=== PATIENT | female | born 1960 | race Two or more races ===

== ENCOUNTER 2017-08-16 08:56 | Inpatient (IN) | payer MEDICARE, MEDICAID ==
[~2017-08-16] VITALS: Ht 162.6 cm; Wt 124.7 kg
--- NOTE | 2017-08-16 08:56 | NUR ---
[id number] FROM [facility] FOR CHEST PAIN RADIATING TO RT ARM X 2HRS [id number], NITRO X1 GIVEN BY EMS W/O RELIEF. PLACED ON MONITOR. AWAITING MD ORDER
--- NOTE | 2017-08-16 09:12 | NUR ---
LAC #18 IV ACCESS. BLOOD SAMPLE COLLECTED SENT TO LAB
--- NOTE | 2017-08-16 09:13 | NUR ---
EKG IN PROGRESS
[2017-08-16 09:15] LABS: BASOPHILS # (AUTO) 0.2 /CMM (0.0-0.2); BASOPHILS % (AUTO) 3.5 % (0.0-2.0); EOSINOPHILS % (AUTO) 4.2 % (0.0-6.0); HEMATOCRIT 44 % (33-45); HEMOGLOBIN 14.8 g/dL (11.5-14.8); LYMPHOCYTES # (AUTO) 1.8 /CMM (0.8-4.8); LYMPHOCYTES % (AUTO) 31.1 % (20.0-44.0); MEAN CORPUSCULAR HGB CONC 33 g/dl (31.0-36.0); MEAN CORPUSCULAR VOLUME 89 fL (82-100); MONOCYTES # (AUTO) 0.4 /CMM (0.1-1.30); MONOCYTES % (AUTO) 6.8 % (2.0-12.0); NEUTROPHILS # (AUTO) 3.3 /CMM (1.8-8.9); NEUTROPHILS % (AUTO) 54.4 % (43.0-81.0); PLATELET COUNT (AUTO) 268 /CMM (150-450); RDW COEFFICIENT OF VARIATION 12.3 (11.5-15.0); RED BLOOD CELL COUNT(AUTO) 4.99 MIL/uL (4.0-5.2); WHITE BLOOD COUNT (AUTO) 5.9 K/uL (4.3-11.0)
[2017-08-16 09:23] LABS: CALCIUM, SERUM 8.7 mg/dL (8.5-10.1); CARBON DIOXIDE 26 mmol/L (21-32); CHLORIDE 103 mmol/L (98-107); GLUCOSE 105 mg/dL (74-106); POTASSIUM 4.3 mmol/L (3.5-5.1); SODIUM SERUM 136 mmol/L (136-145); UREA NITROGEN, BLOOD 16 mg/dL (7-18)
[2017-08-16 09:31] LABS: TROPONIN I < 0.017 ng/mL (0.00-0.056)
--- NOTE | 2017-08-16 10:14 | NUR ---
PAGED [facility] -- COMPOSITE ENGINEER IS DR PALENCIA
[2017-08-16] MEDS ORDERED: OMEP20TA5 PO (10:42)
[2017-08-16] MEDS ORDERED: TEMA15CA PO (10:42)
[2017-08-16] MEDS ORDERED: LORA1TAB PO (10:42)
[2017-08-16] MEDS ORDERED: CYCL5TAB PO (10:42)
[2017-08-16] MEDS ORDERED: ACET-868 PO (10:42)
[2017-08-16] MEDS ORDERED: ESCI10TA PO (10:42)
[2017-08-16] MEDS ORDERED: ARIP5TAB20 PO (10:42)
[2017-08-16] MEDS ORDERED: TRAM50TA2 PO (10:42)
--- NOTE | 2017-08-16 11:06 | NUR ---
TELE 328.1
--- NOTE | 2017-08-16 11:23 | NUR ---
GAVE REPORT TO MARKUS 328-1 DR PALENCIA ADMITTING . CP. TRANSFER VIA ACLS PROTOCOL
[2017-08-16] MEDS ORDERED: MORPHINE SULFATE INJ 2 MG/ML DISP.SYRIN IV PRN (11:30)
[2017-08-16] MEDS ORDERED: ZOLPIDEM TARTRATE 5 MG TABLET PO PRN (11:30)
[2017-08-16] MEDS ORDERED: NITROGLYCERIN 0.4 MG/TAB BOTTLE SL PRN (11:30)
[2017-08-16] MEDS ORDERED: ONDANSETRON HCL/PF 4 MG/2 ML VIAL IVP PRN (11:30)
[2017-08-16 12:05] VITALS: BP 111/81
--- NOTE | 2017-08-16 12:05 | NUR ---
PT RECEIVED FROM ER. NO SOB OR DISTRESS NOTED AT THIS TIME. PATIENT DENIES PAIN AT THIS TIME. PATIENT ORIENTED TO ROOM AND CALL LIGHT. TELE MONITOR APPLIED. BED IN A LOW POSITION, CALL LIGHT WITHIN REACH, WILL MONITOR.
[2017-08-16] MEDS: CYCLOBENZAPRINE 10 MG TABLET PO SCH ×2 (12:33→17:08)
[2017-08-16] MEDS: ASPIRIN 81 MG TAB.CHEW PO SCH ×2 (12:33→12:35)
[2017-08-16] MEDS: METOPROLOL TARTRATE 25 MG TABLET PO SCH ×2 (12:33→17:08)
[2017-08-16 15:47] LABS: MAGNESIUM 2.4 mg/dL (1.8-2.4); PHOSPHORUS 3.7 mg/dL (2.5-4.9)
[2017-08-16 16:50] LABS: THYROID STIMULATING HORMONE 1.185 uIU/mL (0.358-3.74)
--- NOTE | 2017-08-16 17:07 | NUR ---
PT REFUSING SECOND DOSE MORPHINE. STATES FIRST DOSE TOOK AWAY HER PAIN.
--- NOTE | 2017-08-16 19:40 | NUR ---
BRAND STRATEGIST NOTE: PATIENT RESTING IN BED, NO ACUTE DISTRESS NOTED. BREATHING EVEN AND UNLABORED, NO SOB NOTED. IV TO LAC IN PLACE. TELE READING SR 72. BED LOCKED AND IN LOWEST POSITION, CALL LIGHT IN REACH. WILL CONTINUE TO MONITOR.
[2017-08-16 20:00] VITALS: BP 114/69
[2017-08-16] MEDS: TRAMADOL HCL 50 MG TABLET PO SCH (21:29)
--- NOTE | 2017-08-16 21:45 | NUR ---
DONKEY DOCTOR NOTE: PATIENT COMPLAINS OF PAIN TO LEFT ARM/LEG 8/, ULTRAM 50MG ORAL GIVEN PER MD ORDER. WILL CONTINUE TO MONITOR.
[2017-08-17] VITALS: BP 125/71
[2017-08-17 04:00] VITALS: BP 134/75
--- NOTE | 2017-08-17 06:20 | NUR ---
NET DEVELOPER NOTE: PATIENT RESTING IN BED, NO ACUTE DISTRESS NOTED. BREATHING EVEN AND UNLABORED, NO SOB NOTED. IV TO LAC IN PLACE. TELE READING SR 64. BED LOCKED AND IN LOWEST POSITION, CALL LIGHT IN REACH. WILL ENDORSE TO DAY NURSE TO CONTINUE WITH PLAN OF CARE.
--- NOTE | 2017-08-17 07:22 | NUR ---
RN OPENING NOTES PATIENT RESTING IN BED, NO ACUTE DISTRESS NOTED. RESPIRATIONS EVEN AND UNLABORED, NO SOB NOTED. IV TO LAC IN PLACE, NO REDNESS OR INFILTRATION NOTED. PT ON TELEMETRY MONITORING NOTED WITH NORMAL SINUS RHYTHM. BED LOCKED AND IN LOWEST POSITION, CALL LIGHT IN REACH. WILL CONTINUE TO MONITOR.
[2017-08-17] MEDS ORDERED: PANTOPRAZOLE 40 MG TABLET.DR PO SCH (07:30)
[2017-08-17 08:00] VITALS: BP 100/70
--- NOTE | 2017-08-17 08:18 | NUR ---
RN NOTES PATIENT NPO AT THIS TIME FOR STRESS TEST, PT TAKEN DOWN FOR STRESS TEST WILL CONTINUE TO MONITOR AND ADMINISTER MEDICATION UPON RETURN TO UNIT
[2017-08-17] MEDS ORDERED: REGADENOSON 0.4 MG/5 ML DISP.SYRIN IVP ONE (08:20)
[2017-08-17] MEDS ORDERED: ESCITALOPRAM OXALATE (10 MG) 10 MG TABLET PO SCH (09:00)
[2017-08-17] MEDS: METOPROLOL TARTRATE 25 MG TABLET PO SCH (09:00)
[2017-08-17] MEDS ORDERED: ERGOCALCIFEROL (VITAMIN D 2) 50,000 UNIT CAPSULE PO SCH (09:00)
[2017-08-17] MEDS ORDERED: ARIPIPRAZOLE 5 MG TABLET PO SCH (09:00)
--- NOTE | 2017-08-17 09:15 | NUR ---
RN NOTES PATIENT BACK FROM PROCEDURE, BREAKFAST TRAY ORDERED, MEDS TO BE ADMINISTERED ORDERED, WILL CONTINUE TO MONITOR
[2017-08-17] MEDS: CYCLOBENZAPRINE 10 MG TABLET PO SCH ×2 (09:36→12:06)
[2017-08-17] MEDS: TRAMADOL HCL 50 MG TABLET PO SCH (11:48)
[2017-08-17 12:28] LABS: BASOPHILS % (AUTO) 0.2 % (0.0-2.0); EOSINOPHILS % (AUTO) 2.8 % (0.0-6.0); HEMATOCRIT 41 % (33-45); HEMOGLOBIN 13.9 g/dL (11.5-14.8); LYMPHOCYTES # (AUTO) 2.2 /CMM (0.8-4.8); LYMPHOCYTES % (AUTO) 38.8 % (20.0-44.0); MEAN CORPUSCULAR HGB CONC 34 g/dl (31.0-36.0); MEAN CORPUSCULAR VOLUME 89 fL (82-100); MONOCYTES % (AUTO) 0.1 % (2.0-12.0); NEUTROPHILS # (AUTO) 3.3 /CMM (1.8-8.9); NEUTROPHILS % (AUTO) 58.1 % (43.0-81.0); PLATELET COUNT (AUTO) 232 /CMM (150-450); RED BLOOD CELL COUNT(AUTO) 4.61 MIL/uL (4.0-5.2); WHITE BLOOD COUNT (AUTO) 5.7 K/uL (4.3-11.0)
[2017-08-17 12:42] LABS: CALCIUM, SERUM 9.2 mg/dL (8.5-10.1); CREATININE 0.8 mg/dL (0.6-1.3); MAGNESIUM 2.2 mg/dL (1.8-2.4); PHOSPHORUS 3.7 mg/dL (2.5-4.9)
--- NOTE | 2017-08-17 13:30 | NUR ---
IMPRESS ASSOCIATE NOTES PATIENT RESTING IN BED, NO ACUTE DISTRESS NOTED, DENIES ANY PAIN OR DISCOMFORT AT THIS TIME. RESPIRATIONS EVEN AND UNLABORED, NO SOB NOTED. IV TO LAC AND ID BAND REMOVED WITH NO ASE NOTED.PATIENT WITH DISCHARGE ORDERS, ALL DISCHARGE ORDERS INSTRUCTIONS REVIEWED WITH PATIENT THOROUGHLY, F/U APPT WITH CARDIO SCHEDULED AND PATIENT GIVEN INFORMATION, NO PICTURES OF SKIN NEEDED. PATIENT VERBALIZES UNDERSTANDING OF ALL DISCHARGE INSTRUCTIONS. PER PATIENT WILL TAKE BUS HOME, ASSISTED TO LOBBY BY ASSOCIATE SCIENTIST DISCHARGED IN STABLE CONDITION
[2017-08-17 16:00] VITALS: BP 133/90
== END 2017-08-17 13:25 | disposition home or self-care (01) | DRG 205 ==
LOC: ER 08:58 → EDBD 11:21 → TELE 11:21 → MED 08-17 09:14
PROVIDERS: ADMIT Internal Medicine; ATTEND Internal Medicine
DX: M94.0 Chondrocostal junction syndrome [Tietze] (principal); E43 Unspecified severe protein-calorie malnutrition; Z68.42 Body mass index [BMI] 45.0-49.9, adult; E66.01 Morbid (severe) obesity due to excess calories; F41.9 Anxiety disorder, unspecified; I10 Essential (primary) hypertension; K21.9 Gastro-esophageal reflux disease without esophagitis; G47.33 Obstructive sleep apnea (adult) (pediatric); Z90.49 Acquired absence of other specified parts of digestive tract
CPT/HCPCS: 36415; 71045-TC; 80048-TC; 80061-TC; 82306; 83735-TC; 84100-TC; 84439-TC; 84443-TC; 84484-TC; 85025-TC; 87081-TC; 93307-TC; A4606; A9502; J2270; J2405; J2785; Z7610

== ENCOUNTER 2017-08-31 12:30 | Outpatient (CLI) | payer MEDICARE, MEDICAID ==
[~2017-08-31 12:30] MED LIST: ACET-868 PO; ARIP5TAB20 PO; CYCL5TAB PO; ESCI10TA PO; LORA1TAB PO; OMEP20TA5 PO; TEMA15CA PO; TRAM50TA2 PO
[2017-08-31 12:47] VITALS: BP 158/86
[2017-08-31] MEDS ORDERED: AMLO5TAB4 PO (12:47)
== END 2017-08-31 23:59 | disposition home or self-care (01) ==
LOC: MSC 12:30
PROVIDERS: ATTEND Internal Medicine
DX: M94.0 Chondrocostal junction syndrome [Tietze] (principal); I10 Essential (primary) hypertension; E66.01 Morbid (severe) obesity due to excess calories; Z68.41 Body mass index [BMI] 40.0-44.9, adult; F41.9 Anxiety disorder, unspecified; K21.9 Gastro-esophageal reflux disease without esophagitis; M19.90 Unspecified osteoarthritis, unspecified site; R49.0 Dysphonia

== ENCOUNTER 2017-09-28 12:57 | Outpatient (CLI) | payer MEDICARE, MEDICAID ==
[~2017-09-28 12:57] MED LIST changes: +AMLO5TAB4 PO
[2017-09-28 13:21] VITALS: BP 160/92
== END 2017-09-28 23:59 | disposition home or self-care (01) ==
LOC: MSC 12:57
PROVIDERS: ATTEND Internal Medicine
DX: I10 Essential (primary) hypertension (principal); M94.0 Chondrocostal junction syndrome [Tietze]; G62.9 Polyneuropathy, unspecified; G89.29 Other chronic pain; E66.01 Morbid (severe) obesity due to excess calories; Z68.41 Body mass index [BMI] 40.0-44.9, adult; K21.9 Gastro-esophageal reflux disease without esophagitis; F41.9 Anxiety disorder, unspecified; M19.90 Unspecified osteoarthritis, unspecified site; R49.0 Dysphonia; Z79.891 Long term (current) use of opiate analgesic; Z79.899 Other long term (current) drug therapy

== ENCOUNTER 2017-12-14 13:07 | Outpatient (CLI) | payer MEDICARE, MEDICAID ==
[2017-12-14 13:44] VITALS: BP 158/77
== END 2017-12-14 23:59 | disposition home or self-care (01) ==
LOC: MSC 13:07
PROVIDERS: ATTEND Internal Medicine
DX: Z51.89 Encounter for other specified aftercare (principal); I10 Essential (primary) hypertension; G89.29 Other chronic pain; M94.0 Chondrocostal junction syndrome [Tietze]; E66.01 Morbid (severe) obesity due to excess calories; Z68.41 Body mass index [BMI] 40.0-44.9, adult; G62.9 Polyneuropathy, unspecified; K21.9 Gastro-esophageal reflux disease without esophagitis; F41.9 Anxiety disorder, unspecified; M19.90 Unspecified osteoarthritis, unspecified site

== ENCOUNTER 2018-04-05 12:48 | Outpatient (CLI) | payer MEDICARE, MEDICAID | END 2018-04-05 23:59 | disposition home or self-care (01) | LOC: MSC 12:48 | PROVIDERS: ATTEND Nurse Practitioner Acute Care | DX: I10 Essential (primary) hypertension (principal); G62.9 Polyneuropathy, unspecified; G89.29 Other chronic pain; K21.9 Gastro-esophageal reflux disease without esophagitis; F41.9 Anxiety disorder, unspecified; M19.90 Unspecified osteoarthritis, unspecified site; E55.9 Vitamin D deficiency, unspecified; E66.01 Morbid (severe) obesity due to excess calories; Z71.3 Dietary counseling and surveillance; Z90.49 Acquired absence of other specified parts of digestive tract ==

== ENCOUNTER 2018-06-17 11:56 | Emergency (ER) | payer MEDICARE, MEDICAID ==
[~2018-06-17] VITALS: Ht 162.6 cm; Wt 144.2 kg
--- NOTE | 2018-06-17 11:56 | NUR ---
PT BIB SELF C/O HEADACHE, BLURRING OF VISION WORST SINCE LAST NIGHT UNRELIEVED W/ TYLENOL. PT IS AAOX4, NOT IN RESPIRATORY DISTRESS, V/S STABLE, KEPT RESTED AND COMFORTABLE.
--- NOTE | 2018-06-17 12:12 | NUR ---
ADINA AT BEDSIDE FOR EVAL.
[2018-06-17] MEDS ORDERED: KETOROLAC TROMETHAMINE INJ 30 MG/ML VIAL ONE (12:27)
[2018-06-17] MEDS ORDERED: PROCHLORPERAZINE EDISYLATE 10 MG/2 ML VIAL ONE (12:27)
[2018-06-17] MEDS ORDERED: ONDANSETRON HCL/PF 4 MG/2 ML VIAL ONE (12:28)
[2018-06-17] MEDS ORDERED: KETOROLAC TROMETHAMINE INJ 30 MG/ML VIAL IV ONE (12:30)
[2018-06-17] MEDS ORDERED: IV NS 0.9% 1,000 ML BAG IV ONE (12:30)
[2018-06-17] MEDS ORDERED: ONDANSETRON HCL/PF 4 MG/2 ML VIAL IVP ONE (12:30)
[2018-06-17] MEDS ORDERED: PROCHLORPERAZINE EDISYLATE 10 MG/2 ML VIAL IV ONE (12:30)
--- NOTE | 2018-06-17 12:45 | NUR ---
IV LINE ESTABLISHED.
--- NOTE | 2018-06-17 12:50 | NUR ---
PT IS WHEELED TO CT SCAN VIA [facility].
--- NOTE | 2018-06-17 14:14 | NUR ---
IV removed. Catheter intact and site benign. Pressure and 4x4 applied to site. No bleeding noted. Patient discharged to home in stable condition. Written and verbal after care instructions given. Patient verbalizes understanding of instruction.
[2018-06-17 14:15] VITALS: BP 130/72
== END 2018-06-17 14:17 | disposition home or self-care (01) ==
LOC: ER 12:02
DX: G43.909 Migraine, unspecified, not intractable, without status migrainosus (principal); K21.9 Gastro-esophageal reflux disease without esophagitis; I10 Essential (primary) hypertension; F41.9 Anxiety disorder, unspecified; E66.01 Morbid (severe) obesity due to excess calories; Z90.49 Acquired absence of other specified parts of digestive tract
CPT/HCPCS: 70450; 96374; 96375; 99284; A4606; J0780; J1885; J2405; J7030

== ENCOUNTER 2018-06-17 16:24 | Emergency (ER) | payer MEDICARE, MEDICAID ==
[~2018-06-17] VITALS: Ht 162.6 cm; Wt 136.1 kg
[2018-06-17 16:35] VITALS: BP 148/80
--- NOTE | 2018-06-17 16:35 | NUR ---
PT [facility] TO ER, C/O HEADACHE AND BILATERAL EYE PAIN; 01/05, PT IS AAOX4, NOT IN RESPIRATORY DISTRESS, V/S STABLE, KEPT RESTED AND COMFORTABLE.
--- NOTE | 2018-06-17 17:00 | NUR ---
SEEN AND EXAMINED BY DR. ESPINAL.
[2018-06-17] MEDS ORDERED: IBUPROFEN 600 MG TABLET PO ONE ×2 (17:06→17:30)
[2018-06-17] MEDS ORDERED: HYDROCODONE/APAP 10/325MG 1 EA TABLET ONE (17:06)
--- NOTE | 2018-06-17 17:08 | NUR ---
LEFT A MESSAGE FOR KAYLA. WILL CALL HER BACK
--- NOTE | 2018-06-17 17:29 | NUR ---
CALLED CASE MANAGEMENT AND WAS INFORMED THAT KAYLA HAD ALREADY GONE HOME FOR THE DAY. ASKED CM TO COME AND SPEAK TO THE PT. THEY WILL ARRIVE SHORTLY
[2018-06-17] MEDS ORDERED: HYDROCODONE/APAP 10/325MG 1 EA TABLET PO ONE (17:30)
--- NOTE | 2018-06-17 17:51 | NUR ---
Patient given written and verbal discharge instructions. Patient verbalizes understanding of instructions. Patient is ambulatory with steady gait. Refuses offer of longterm placement. Patient given list of available shelters in surrounding area.
== END 2018-06-17 17:56 | disposition home or self-care (01) ==
LOC: ER 16:26
DX: R51 Headache (principal); I10 Essential (primary) hypertension; K21.9 Gastro-esophageal reflux disease without esophagitis; F41.9 Anxiety disorder, unspecified; E66.01 Morbid (severe) obesity due to excess calories; Z90.49 Acquired absence of other specified parts of digestive tract
CPT/HCPCS: 99283; A4606

== ENCOUNTER 2018-07-05 12:40 | Outpatient (CLI) | payer MEDICARE, MEDICAID | END 2018-07-05 23:59 | disposition home or self-care (01) | LOC: MSC 12:40 | PROVIDERS: ATTEND Nurse Practitioner Acute Care | DX: M19.90 Unspecified osteoarthritis, unspecified site (principal); G89.29 Other chronic pain; G62.9 Polyneuropathy, unspecified; I10 Essential (primary) hypertension; K21.9 Gastro-esophageal reflux disease without esophagitis; F41.9 Anxiety disorder, unspecified; E55.9 Vitamin D deficiency, unspecified; E66.9 Obesity, unspecified ==

== ENCOUNTER 2018-10-04 12:24 | Outpatient (CLI) | payer MEDICARE, MEDICAID ==
[2018-10-04 13:00] VITALS: BP 148/75
== END 2018-10-04 23:59 | disposition home or self-care (01) ==
LOC: MSC 12:24
PROVIDERS: ATTEND Internal Medicine
DX: I10 Essential (primary) hypertension (principal); G89.29 Other chronic pain; G62.9 Polyneuropathy, unspecified; E66.01 Morbid (severe) obesity due to excess calories; Z68.41 Body mass index [BMI] 40.0-44.9, adult; K21.9 Gastro-esophageal reflux disease without esophagitis; F41.8 Other specified anxiety disorders; Z87.19 Personal history of other diseases of the digestive system; M19.90 Unspecified osteoarthritis, unspecified site; R49.0 Dysphonia; R45.851 Suicidal ideations

== ENCOUNTER 2019-01-03 13:14 | Outpatient (CLI) | payer MEDICARE, MEDICAID ==
[2019-01-03] MEDS ORDERED: GABA-534 PO (14:50)
[2019-01-06] MEDS ORDERED: TOPI25TA PO (08:59)
[2019-01-06] MEDS ORDERED: LISI10TA59 PO (08:59)
== END 2019-01-03 23:59 | disposition home or self-care (01) ==
LOC: MSC 13:14
PROVIDERS: ATTEND Internal Medicine
DX: R51 Headache (principal); R29.810 Facial weakness; I10 Essential (primary) hypertension; E66.9 Obesity, unspecified; G62.9 Polyneuropathy, unspecified; G89.29 Other chronic pain; M54.5 Low back pain; F41.9 Anxiety disorder, unspecified; F32.9 Major depressive disorder, single episode, unspecified

== ENCOUNTER 2019-01-03 14:04 | Inpatient (IN) | payer MEDICARE, MEDICAID ==
[~2019-01-03] VITALS: Ht 162.6 cm; Wt 1.6 kg
[2019-01-03] MEDS ORDERED: GABA-534 PO (14:50)
--- NOTE | 2019-01-03 14:56 | NUR ---
Patient awake alert non distress ,monitor ,gown ,vitals sign lab drws done
[2019-01-03 15:15] LABS: BASOPHILS # (AUTO) 0.1 /CMM (0.0-0.2); BASOPHILS % (AUTO) 1.1 % (0.0-2.0); EOSINOPHILS % (AUTO) 2.9 % (0.0-6.0); HEMATOCRIT 39 % (33-45); HEMOGLOBIN 13.1 g/dL (11.5-14.8); LYMPHOCYTES % (AUTO) 29.4 % (20.0-44.0); MEAN CORPUSCULAR HGB CONC 34 g/dl (31.0-36.0); MEAN CORPUSCULAR VOLUME 91 fL (82-100); MONOCYTES # (AUTO) 0.6 /CMM (0.1-1.30); MONOCYTES % (AUTO) 9.6 % (2.0-12.0); NEUTROPHILS # (AUTO) 3.8 /CMM (1.8-8.9); PLATELET COUNT (AUTO) 228 /CMM (150-450); RED BLOOD CELL COUNT(AUTO) 4.29 MIL/uL (4.0-5.2); WHITE BLOOD COUNT (AUTO) 6.6 K/uL (4.3-11.0)
[2019-01-03 15:22] LABS: CALCIUM, SERUM 8.5 mg/dL (8.5-10.1)
[2019-01-03 15:27] LABS: ALBUMIN 3.4 g/dL (3.4-5.0); BILIRUBIN,DIRECT 0.1 mg/dL (0.0-0.2); BILIRUBIN,TOTAL 0.2 mg/dL (0.2-1.0); TOTAL PROTEIN, SERUM 7.1 g/dL (6.4-8.2)
--- NOTE | 2019-01-03 15:55 | NUR ---
CALLED [facility] LELIA LOONEY.
[2019-01-03] MEDS ORDERED: ZOLPIDEM TARTRATE 5 MG TABLET PO PRN (16:30)
[2019-01-03] MEDS ORDERED: ACETAMINOPHEN 325 MG TABLET PO PRN (16:30)
[2019-01-03] MEDS ORDERED: MAGNESIUM HYDROXIDE 30 ML UDC PO PRN (16:30)
[2019-01-03] MEDS ORDERED: Z GUARD REMEDY 2 OZ OINT TP PRN (16:30)
[2019-01-03] MEDS ORDERED: TRAMADOL HCL 50 MG TABLET PO SCH (16:30)
[2019-01-03] MEDS ORDERED: MAG HYDROX/AL HYDROX/SIMETH 30 ML UDC PO PRN (16:30)
[2019-01-03] MEDS ORDERED: ONDANSETRON HCL/PF 4 MG/2 ML VIAL IVP PRN (16:30)
--- NOTE | 2019-01-03 16:45 | NUR ---
REPORT GIVEN TO JUAN CARLOS MCKENZIE. AWAITING TRANSFER TO FLOOR.
[2019-01-03 17:05] VITALS: BP 128/76
[2019-01-03] MEDS: CYCLOBENZAPRINE 10 MG TABLET PO SCH (17:21)
--- NOTE | 2019-01-03 18:16 | NUR ---
TELE ADMITTING NOTES PT ADMITTED TO UNIT VIA [facility] AT 1700 ACCOMPANIED BY VOCATIONAL TRAINING INSTRUCTOR QUINN. PT ABLE TO AMBULATE FROM [facility] TO BED WITH STEADY GAIT. A/O X4. ABLE TO MAKE NEEDS KNOWN, VERBALIZED THAT SHE STILL EXPERIENCE MILD TINGLING TO RIGHT ARM ON AND OFF AND MILD HEADACHE BUT TOLERABLE. PT ORIENTED TO UNIT, STAFF AND ROOM. V/S TAKEN AND RECORDED. PT NOTED WITH IV ACCESS ON RIGHT FA G #20 INTACT, PATENT AND FLUSHES WELL. PT WITH NO SLURRED SPEECH, NO DRIFT ON BLE AND BUE, NO FACIAL DROOP NOTED. DR MADDOX MADE AWARE AND CAME WELL TO ASSESS AND EVALUATE PT. PT PLACED ON TELE-MONITORING SHOWING ST/SR WITH HR ON THE 90'S, NO C/O CARDIAC DISTRESS VOICED. SAFETY MEASURES INITIATED: BED PLACED IN LOW LOCKED POSITION WITH SIDE-RAILS UP X2. CALL LIGHT PLACED WITH IN EASY REACH OF PT. WILL CONTINUE TO MONITOR PT.
--- NOTE | 2019-01-03 18:53 | NUR ---
DRILL PRESS TENDER CLOSING NOTES PT IN BED AWAKE WATCHING TV AT THIS TIME. A/O X4 AND ABLE TO VERBALIZED NEEDS, NO C/O PAIN OR DISCOMFORTS AT THIS TIME. TELEMONITORING REMAINS WITH READINGS OF ST/SR WITH HR ON THE 90'S, NO C/O CARDIAC DISTRESS VOICED. IV ACCESS ON RFA INTACT AND PATENT. ALL NEEDS AND CARE ATTENDED WELL. ALL SAFETY MEASURES KEPT IN PLACE. CALL LIGHT WITHIN EASY REACH OF PT. WILL ENDORSE TO GAMING DEPARTMENT HEAD NURSE FOR NURYS.
--- NOTE | 2019-01-03 19:10 | NUR ---
INSPECTOR MECHANICAL OPENING NOTES PATIENT RECEIVED IN BED, AWAKE, WATCHING TV. A/O X4 AND ABLE TO VERBALIZED NEEDS. NO C/O PAIN OR DISCOMFORT AT THIS TIME. TELEMONITOR IN PLACE- SINUS TACH 103. IV ACCESS ON RFA G#20 INTACT AND PATENT. SAFETY MEASURES IN PLACE; CALL LIGHT WITHIN EASY REACH, BED IN LOW, LOCKED POSITION. WILL CONTINUE TO MONITOR ACCORDINGLY
--- NOTE | 2019-01-03 19:53 | NUR ---
RN NOTES Patient c/o sharp pain on top of head and on side 9/10, requested for ultram. Ultram 50mg po given as ordered. Will continue to monitor
[2019-01-03 19:57] VITALS: BP 143/78
[2019-01-03 20:00] VITALS: BP 143/78
[2019-01-03] MEDS: HYDROCODONE/APAP 5/325MG 1 EACH TABLET PO PRN (21:58)
[2019-01-04] VITALS: BP 138/85
[2019-01-04 00:17] VITALS: BP 138/85
[2019-01-04] MEDS: HYDROCODONE/APAP 5/325MG 1 EACH TABLET PO PRN ×5 (02:04→23:50)
[2019-01-04 04:02] VITALS: BP 158/89
--- NOTE | 2019-01-04 06:30 | NUR ---
SENIOR SVP CLOSING NOTES PATIENT IN BED, RESTING, A/O X4 AND ABLE TO VERBALIZE NEEDS. NO C/O PAIN OR DISCOMFORTS AT THIS TIME. TELEMONITOR IN PLACE- SINUS RHYTHM 83. IV ACCESS ON RFA INTACT AND PATENT. NO ACUTE CHANGES OVERNIGHT. ALL NEEDS ATTENDED WELL. ALL SAFETY MEASURES KEPT IN PLACE. CALL LIGHT WITHIN EASY REACH, BED IN LOW, LOCKED POSITION. WILL ENDORSE NURYS TO ONCOMING NURSE
--- NOTE | 2019-01-04 07:30 | NUR ---
RN MS NOTES PT AWAKE, ALERT AND ORIENTED, WALKING INSIDE HER ROOM, STILL WITH COMPLAINT OF HEADACHE, NO COMPLAINT OF DIZZINESS, NO SOB, CALL LIGHT WITHIN REACH, NEEDS ATTENDED.
[2019-01-04 07:49] LABS: BASOPHILS # (AUTO) 0.1 /CMM (0.0-0.2); BASOPHILS % (AUTO) 1.1 % (0.0-2.0); EOSINOPHILS % (AUTO) 4.2 % (0.0-6.0); HEMATOCRIT 40 % (33-45); HEMOGLOBIN 13.3 g/dL (11.5-14.8); LYMPHOCYTES # (AUTO) 2.1 /CMM (0.8-4.8); LYMPHOCYTES % (AUTO) 37.8 % (20.0-44.0); MEAN CORPUSCULAR HGB CONC 33 g/dl (31.0-36.0); MEAN CORPUSCULAR VOLUME 91 fL (82-100); MONOCYTES # (AUTO) 0.5 /CMM (0.1-1.30); MONOCYTES % (AUTO) 8.1 % (2.0-12.0); NEUTROPHILS # (AUTO) 2.7 /CMM (1.8-8.9); NEUTROPHILS % (AUTO) 48.8 % (43.0-81.0); PLATELET COUNT (AUTO) 220 /CMM (150-450); RED BLOOD CELL COUNT(AUTO) 4.39 MIL/uL (4.0-5.2); WHITE BLOOD COUNT (AUTO) 5.6 K/uL (4.3-11.0)
[2019-01-04 07:56] LABS: CALCIUM, SERUM 8.8 mg/dL (8.5-10.1); CREATININE 0.9 mg/dL (0.6-1.3); MAGNESIUM 1.9 mg/dL (1.8-2.4); PHOSPHORUS 4.5 mg/dL (2.5-4.9)
[2019-01-04 08:00] VITALS: BP 141/74
[2019-01-04] MEDS: CYCLOBENZAPRINE 10 MG TABLET PO SCH ×3 (08:21→17:46)
[2019-01-04] MEDS: PANTOPRAZOLE 40 MG TABLET.DR PO SCH (08:21)
[2019-01-04] MEDS: GABAPENTIN 300 MG CAPSULE PO SCH (08:21)
[2019-01-04] MEDS: AMLODIPINE BESYLATE 5 MG TABLET PO SCH (08:22)
[2019-01-04] MEDS: TRAMADOL HCL 50 MG TABLET PO PRN ×2 (08:30→17:45)
--- NOTE | 2019-01-04 11:39 | NUR ---
RN MS NOTES PT AWAKE, WALKING INSIDE HER ROOM WITH SLOW AND STEADY GAIT, PAIN MEDICATION GIVEN FOR HEADACHE, SEEN BY DR. MADDOX, PLAN OF CARE DISCUSSED WITH PT, VERBALIZED UNDERSTANDING, NEEDS ATTENDED.
[2019-01-04 16:00] VITALS: BP 160/78
--- NOTE | 2019-01-04 18:42 | NUR ---
RN MS NOTES PT AWAKE, ALERT AND ORIENTED, WALKING AROUND INSIDE HER ROOM, AT TIMES TALKING ON THE PHONE, PAIN MEDS GIVEN ORDERED FOR HEADACHE, NO OTHER COMPLAINT NOTED, TOLERATING CURRENT DIET, PM MEDS GIVEN, ALL NEEDS ATTENDED.
[2019-01-04 20:18] VITALS: BP 150/78
--- NOTE | 2019-01-05 06:21 | NUR ---
MS RN NOTES AWAKE & RESPONSIVE. NOT IN ANY DISTRESS. NO SOB NOTED. DENIES ANY PAIN OR DISCOMFORT AT THIS TIME. CALL LIGHT WITHIN REACH. BED IN LOWEST POSITION. SR UP X 3 WITH BED ALARM ON FOR SAFETY. WILL ENDORSE TO NEXT SHIFT.
[2019-01-05 07:04] LABS: BASOPHILS % (AUTO) 0.8 % (0.0-2.0); EOSINOPHILS % (AUTO) 4.1 % (0.0-6.0); HEMATOCRIT 38 % (33-45); HEMOGLOBIN 12.6 g/dL (11.5-14.8); LYMPHOCYTES # (AUTO) 1.8 /CMM (0.8-4.8); LYMPHOCYTES % (AUTO) 31.6 % (20.0-44.0); MEAN CORPUSCULAR HGB CONC 33 g/dl (31.0-36.0); MEAN CORPUSCULAR VOLUME 90 fL (82-100); MONOCYTES # (AUTO) 0.6 /CMM (0.1-1.30); MONOCYTES % (AUTO) 10.3 % (2.0-12.0); NEUTROPHILS % (AUTO) 53.2 % (43.0-81.0); PLATELET COUNT (AUTO) 212 /CMM (150-450); RED BLOOD CELL COUNT(AUTO) 4.21 MIL/uL (4.0-5.2); WHITE BLOOD COUNT (AUTO) 5.6 K/uL (4.3-11.0)
[2019-01-05 07:16] LABS: CALCIUM, SERUM 8.6 mg/dL (8.5-10.1); CREATININE 0.9 mg/dL (0.6-1.3)
[2019-01-05 08:00] VITALS: BP 140/79
--- NOTE | 2019-01-05 08:00 | NUR ---
MS RN OPENING NOTES PATIENT RECEIVED IN BED, AWAKE, WATCHING TV. A/O X4 AND ABLE TO VERBALIZED NEEDS. WITH C/O HEADACHE PAIN -ULTRAM GIVEN PRN WITH EFFECTIVE RESULT.AMBULATES AD [facility] WITH [facility]. IV H/L GOT ACCIDENTALLY PULLED OUT-DR MADDOX AWARE WITH NO ORDERS TO REPLACE IV H/L.PT DRINKS GOOD AND HAS GOOD APPETITE. PT WILL BE DISCHARGED TOMORROW AM PER DR MADDOX. SAFETY MEASURES IN PLACE; CALL LIGHT WITHIN EASY REACH, BED IN LOW, LOCKED POSITION. WILL CONTINUE TO MONITOR ACCORDINGLY
[2019-01-05] MEDS: TRAMADOL HCL 50 MG TABLET PO PRN (08:06)
[2019-01-05] MEDS: PANTOPRAZOLE 40 MG TABLET.DR PO SCH (08:06)
[2019-01-05] MEDS: GABAPENTIN 300 MG CAPSULE PO SCH (08:07)
[2019-01-05] MEDS: CYCLOBENZAPRINE 10 MG TABLET PO SCH ×3 (08:07→16:56)
[2019-01-05] MEDS: AMLODIPINE BESYLATE 5 MG TABLET PO SCH (08:25)
[2019-01-05] MEDS: LISINOPRIL (10MG) 10 MG TABLET PO SCH (08:29)
[2019-01-05 16:00] VITALS: BP 124/68
[2019-01-05] MEDS: TOPIRAMATE 25 MG TABLET PO SCH ×2 (16:56→22:18)
[2019-01-05] MEDS ORDERED: IOHEXOL-350 100 ML VIAL IV ONE (17:03)
[2019-01-05] MEDS ORDERED: IV NS 0.9% 250 ML IV ONE (17:03)
[2019-01-05] MEDS ORDERED: CT SWABBABLE VALVE TRANS SET 1 EA INFUS.SET MC ONE (17:03)
--- NOTE | 2019-01-05 18:14 | NUR ---
PT RESTING IN BED DENYING ANY PAIN OR DISTRESS.EATING HER DINNER 100%.CALL LIGHT PLACED WITHIN REACH.
[2019-01-05 20:00] VITALS: BP 124/61
[2019-01-06 06:29] LABS: BASOPHILS % (AUTO) 0.6 % (0.0-2.0); EOSINOPHILS % (AUTO) 3.3 % (0.0-6.0); HEMATOCRIT 39 % (33-45); HEMOGLOBIN 12.8 g/dL (11.5-14.8); LYMPHOCYTES # (AUTO) 1.6 /CMM (0.8-4.8); LYMPHOCYTES % (AUTO) 26.8 % (20.0-44.0); MEAN CORPUSCULAR HGB CONC 33 g/dl (31.0-36.0); MEAN CORPUSCULAR VOLUME 91 fL (82-100); MONOCYTES # (AUTO) 0.6 /CMM (0.1-1.30); NEUTROPHILS # (AUTO) 3.6 /CMM (1.8-8.9); NEUTROPHILS % (AUTO) 59.3 % (43.0-81.0); PLATELET COUNT (AUTO) 210 /CMM (150-450); RED BLOOD CELL COUNT(AUTO) 4.28 MIL/uL (4.0-5.2)
--- NOTE | 2019-01-06 06:33 | NUR ---
MS RN NOTES AWAKE & RESPONSIVE. NOT IN ANY DISTRESS. NO SOB NOTED. DENIES ANY PAIN OR DISCOMFORT AT THIS TIME. WITH IV-HL PATENT & INTACT. CALL LIGHT WITHIN REACH. BED IN LOWEST POSITION. SR UP X 3 WITH BED ALARM ON FOR SAFETY. WILL ENDORSE TO NEXT SHIFT.
[2019-01-06 06:48] LABS: POTASSIUM 4.3 mmol/L (3.5-5.1)
[2019-01-06 08:00] VITALS: BP 117/70
--- NOTE | 2019-01-06 08:00 | NUR ---
MS RN AM NOTES AWAKE & RESPONSIVE. DENIES HEADACHE NOR DISTRESS. NO SOB NOTED. DENIES ANY PAIN OR DISCOMFORT AT THIS TIME. WITH IV-HL PATENT & INTACT. CALL LIGHT WITHIN REACH. BED IN LOWEST POSITION. SR UP X 3 WITH BED ALARM ON FOR SAFETY.
[2019-01-06] MEDS: CYCLOBENZAPRINE 10 MG TABLET PO SCH ×2 (08:52→13:10)
[2019-01-06] MEDS: GABAPENTIN 300 MG CAPSULE PO SCH (08:52)
[2019-01-06] MEDS: PANTOPRAZOLE 40 MG TABLET.DR PO SCH (08:52)
[2019-01-06] MEDS: LISINOPRIL (10MG) 10 MG TABLET PO SCH (08:52)
[2019-01-06 08:53] VITALS: BP 117/70
[2019-01-06] MEDS: AMLODIPINE BESYLATE 5 MG TABLET PO SCH (08:53)
[2019-01-06] MEDS: TOPIRAMATE 25 MG TABLET PO SCH (08:53)
[2019-01-06] MEDS ORDERED: TOPI25TA PO (08:59)
[2019-01-06] MEDS ORDERED: LISI10TA59 PO (08:59)
--- NOTE | 2019-01-06 13:00 | NUR ---
DISCHARGE PT HOME WITH STABLE V/S.IV H/L REMOVED TO RT AC WITH NO BLEEDING OR SWELLING NOTED ON THE SITE.DENIES ANY HEADACHE,DISTRESS OR DISCOMFORT.INSTRUCTED TO F/U WITH HER PMD AND NEURO SPECIALIST.PRESCRIPTION HANDED TO THE PT AND WAS ELECTRONICALLY TRANSFERRED BY DR MADDOX TO PT'S HOME PHARMACY,[facility].
== END 2019-01-06 13:00 | disposition home or self-care (01) | DRG 305 ==
LOC: ER 14:05 → TELE 16:44 → MED 01-04 08:57
PROVIDERS: ADMIT Family Medicine; ATTEND Family Medicine
DX: I16.1 Hypertensive emergency (principal); Z68.1 Body mass index [BMI] 19.9 or less, adult; I10 Essential (primary) hypertension; K21.9 Gastro-esophageal reflux disease without esophagitis; M19.90 Unspecified osteoarthritis, unspecified site; G62.9 Polyneuropathy, unspecified; F41.9 Anxiety disorder, unspecified; E66.01 Morbid (severe) obesity due to excess calories; Z79.899 Other long term (current) drug therapy; Z90.49 Acquired absence of other specified parts of digestive tract; D17.9 Benign lipomatous neoplasm, unspecified; G43.909 Migraine, unspecified, not intractable, without status migrainosus
CPT/HCPCS: 36415; 70450-TC; 70496-TC; 71045-TC; 80048-TC; 80061-TC; 80076-TC; 82962-TC; 83735-TC; 84100-TC; 85025-TC; 87081-TC; 93307-TC; 93880-TC; G0378; J7050; Q9967

== ENCOUNTER 2019-02-03 13:11 | Outpatient (CLI) | payer MEDICARE, MEDICAID ==
[~2019-02-03 13:11] MED LIST changes: -ACET-868 PO; -ARIP5TAB20 PO; -ESCI10TA PO; +LISI-605 PO; -LORA1TAB PO; -TEMA15CA PO; +TOPI25TA PO
[2019-02-03 14:24] VITALS: BP 158/82
== END 2019-02-03 23:59 | disposition home or self-care (01) ==
LOC: MSC 13:11
PROVIDERS: ATTEND Internal Medicine
DX: G43.109 Migraine with aura, not intractable, without status migrainosus (principal); I10 Essential (primary) hypertension; E66.01 Morbid (severe) obesity due to excess calories; Z68.41 Body mass index [BMI] 40.0-44.9, adult; G62.9 Polyneuropathy, unspecified; G89.29 Other chronic pain; M54.9 Dorsalgia, unspecified; F41.8 Other specified anxiety disorders; M25.559 Pain in unspecified hip; K21.0 Gastro-esophageal reflux disease with esophagitis; Z79.891 Long term (current) use of opiate analgesic; Z79.899 Other long term (current) drug therapy

== ENCOUNTER 2019-05-02 13:48 | Outpatient (CLI) | payer MEDICARE, MEDICAID ==
[2019-05-02 13:53] VITALS: BP 148/83
== END 2019-05-02 23:55 | disposition home or self-care (01) ==
LOC: MSC 13:48
PROVIDERS: ATTEND Internal Medicine
DX: G43.109 Migraine with aura, not intractable, without status migrainosus (principal); I10 Essential (primary) hypertension; E66.01 Morbid (severe) obesity due to excess calories; Z68.41 Body mass index [BMI] 40.0-44.9, adult; G62.9 Polyneuropathy, unspecified; G89.29 Other chronic pain; M54.9 Dorsalgia, unspecified; K43.9 Ventral hernia without obstruction or gangrene; F41.8 Other specified anxiety disorders; Z79.899 Other long term (current) drug therapy

== ENCOUNTER 2019-06-06 14:45 | Outpatient (CLI) | payer MEDICARE, MEDICAID | END 2019-06-06 23:59 | disposition home or self-care (01) | LOC: MSC 14:45 | PROVIDERS: ATTEND Internal Medicine | DX: G43.109 Migraine with aura, not intractable, without status migrainosus (principal); I10 Essential (primary) hypertension; E66.01 Morbid (severe) obesity due to excess calories; Z68.41 Body mass index [BMI] 40.0-44.9, adult; G62.9 Polyneuropathy, unspecified; G89.29 Other chronic pain; M54.9 Dorsalgia, unspecified; Z86.59 Personal history of other mental and behavioral disorders; Z87.19 Personal history of other diseases of the digestive system; Z79.899 Other long term (current) drug therapy ==

== ENCOUNTER 2019-07-25 09:35 | Outpatient (CLI) | payer MEDICARE, MEDICAID | END 2019-07-25 23:59 | disposition home or self-care (01) | LOC: MSC 09:35 | PROVIDERS: ATTEND Internal Medicine | DX: Z09 Encounter for follow-up examination after completed treatment for conditions other than malignant neoplasm (principal); G43.109 Migraine with aura, not intractable, without status migrainosus; I10 Essential (primary) hypertension; E66.01 Morbid (severe) obesity due to excess calories; Z68.41 Body mass index [BMI] 40.0-44.9, adult; G62.9 Polyneuropathy, unspecified; G89.29 Other chronic pain; M54.9 Dorsalgia, unspecified; K21.9 Gastro-esophageal reflux disease without esophagitis; Z86.59 Personal history of other mental and behavioral disorders; Z79.899 Other long term (current) drug therapy ==

== ENCOUNTER 2019-08-01 11:06 | Outpatient (CLI) | payer MEDICARE, MEDICAID | END 2019-08-01 23:59 | disposition home or self-care (01) | LOC: MSC 11:06 | PROVIDERS: ATTEND Internal Medicine | DX: K43.9 Ventral hernia without obstruction or gangrene (principal); G43.109 Migraine with aura, not intractable, without status migrainosus; I10 Essential (primary) hypertension; E66.01 Morbid (severe) obesity due to excess calories; Z68.41 Body mass index [BMI] 40.0-44.9, adult; G62.9 Polyneuropathy, unspecified; G89.29 Other chronic pain; M54.9 Dorsalgia, unspecified; Z86.59 Personal history of other mental and behavioral disorders; Z79.899 Other long term (current) drug therapy; Z79.1 Long term (current) use of non-steroidal anti-inflammatories (NSAID) ==

== ENCOUNTER 2019-10-03 15:06 | Outpatient (CLI) | payer MEDICARE, MEDICAID ==
[2019-10-11] MEDS ORDERED: METO50TA16 PO (13:19)
[2019-10-11] MEDS ORDERED: ATOR10TA PO (13:19)
== END 2019-10-03 23:59 | disposition home or self-care (01) ==
LOC: MSC 15:06
PROVIDERS: ATTEND Internal Medicine
DX: R50.9 Fever, unspecified (principal); G43.109 Migraine with aura, not intractable, without status migrainosus; I10 Essential (primary) hypertension; E66.01 Morbid (severe) obesity due to excess calories; Z68.41 Body mass index [BMI] 40.0-44.9, adult; G62.9 Polyneuropathy, unspecified; G89.29 Other chronic pain; M54.9 Dorsalgia, unspecified; K43.9 Ventral hernia without obstruction or gangrene; F41.8 Other specified anxiety disorders; Z79.899 Other long term (current) drug therapy

== ENCOUNTER 2019-10-10 12:39 | Outpatient (CLI) | payer MEDICARE, MEDICAID ==
[2019-10-10] MEDS ORDERED: LISI40TA4 MT (14:52)
[2019-10-10] MEDS ORDERED: TOPI50TA24 MT (14:52)
[2019-10-10] MEDS ORDERED: OMEP20CA15 MT (14:52)
[2019-10-10] MEDS ORDERED: AMLO10TA7 MT (14:52)
[2019-10-11] MEDS ORDERED: METO50TA16 PO (13:19)
[2019-10-11] MEDS ORDERED: ATOR10TA PO (13:19)
== END 2019-10-10 23:59 | disposition home or self-care (01) ==
LOC: MSC 12:39
PROVIDERS: ATTEND Internal Medicine
DX: R07.9 Chest pain, unspecified (principal); R06.09 Other forms of dyspnea; I99.8 Other disorder of circulatory system; I16.0 Hypertensive urgency; E66.01 Morbid (severe) obesity due to excess calories; Z68.41 Body mass index [BMI] 40.0-44.9, adult; G43.109 Migraine with aura, not intractable, without status migrainosus; G62.9 Polyneuropathy, unspecified; G89.29 Other chronic pain; M54.9 Dorsalgia, unspecified; Z87.19 Personal history of other diseases of the digestive system; Z86.59 Personal history of other mental and behavioral disorders; Z79.899 Other long term (current) drug therapy

== ENCOUNTER 2019-10-10 13:27 | Inpatient (IN) | payer MEDICARE, OTHER ==
[~2019-10-10] VITALS: Ht 162.6 cm; Wt 141.1 kg
[2019-10-10 13:50] LABS: BASOPHILS # (AUTO) 0.1 /CMM (0.0-0.2); BASOPHILS % (AUTO) 0.8 % (0.0-2.0); HEMATOCRIT 38 % (33-45); HEMOGLOBIN 12.5 g/dL (11.5-14.8); LYMPHOCYTES % (AUTO) 31.4 % (20.0-44.0); MEAN CORPUSCULAR HGB CONC 33 g/dl (31.0-36.0); MEAN CORPUSCULAR VOLUME 93 fL (82-100); MONOCYTES # (AUTO) 0.5 /CMM (0.1-1.30); MONOCYTES % (AUTO) 7.2 % (2.0-12.0); NEUTROPHILS # (AUTO) 3.7 /CMM (1.8-8.9); NEUTROPHILS % (AUTO) 57.6 % (43.0-81.0); PLATELET COUNT (AUTO) 217 /CMM (150-450); RED BLOOD CELL COUNT(AUTO) 4.11 MIL/uL (4.0-5.2); WHITE BLOOD COUNT (AUTO) 6.5 K/uL (4.3-11.0)
--- NOTE | 2019-10-10 13:50 | NUR ---
CHEST PAIN, SOB ON EXERTION X 2 WEEKS SENT BY MD HERNANDEZ FOR EVAL. PT AAOX4, PLACED ON GOODYEAR STITCHER, ST. PT SEEN & EVAL'D BY DR. MENDIOLA. WILL CONT TO MONITOR.
[2019-10-10] MEDS ORDERED: ASPIRIN 81 MG TAB.CHEW ONE (13:55)
[2019-10-10 13:58] LABS: CALCIUM, SERUM 8.5 mg/dL (8.5-10.1); CARBON DIOXIDE 20 mmol/L (21-32); CHLORIDE 109 mmol/L (98-107); GLUCOSE 131 mg/dL (74-106); SODIUM SERUM 141 mmol/L (136-145); UREA NITROGEN, BLOOD 23 mg/dL (7-18)
[2019-10-10] MEDS ORDERED: ASPIRIN 81 MG TAB.CHEW PO ONE (14:00)
[2019-10-10] MEDS ORDERED: OMEP20CA15 MT (14:52)
[2019-10-10] MEDS ORDERED: TOPI50TA24 MT (14:52)
[2019-10-10] MEDS ORDERED: AMLO10TA7 MT (14:52)
[2019-10-10] MEDS ORDERED: LISI40TA4 MT (14:52)
[2019-10-10] MEDS ORDERED: ASPIRIN 325 MG TABLET PO ONE (15:00)
[2019-10-10] MEDS ORDERED: NITROGLYCERIN PACKET 1 GM PACKET TOP ONE (15:00)
[2019-10-10] MEDS ORDERED: NITROGLYCERIN PACKET 1 GM PACKET ONE (15:14)
--- NOTE | 2019-10-10 15:19 | NUR ---
MEDICATED PER ERMD ORDER FOR CP. PT MERLYN WELL. VSS. WILL CONT TO MONITOR.
--- NOTE | 2019-10-10 15:42 | NUR ---
SREEKANTH VELEZ, WAITING FOR CALL BACK.
--- NOTE | 2019-10-10 16:39 | NUR ---
PT IS GOING 327-1
--- NOTE | 2019-10-10 17:20 | NUR ---
REPORT GIVEN TO SHIRA MCNAIR. PT AWAITING TRANSFER TO FLOOR.
--- NOTE | 2019-10-10 17:51 | NUR ---
CALLED MAIN LAB, ETA 30 MINUTES FOR COVID RESULT
--- NOTE | 2019-10-10 18:35 | NUR ---
tele inventory control assistant: notes received pt from e.rMercedes via jayleen accompanied by 2 staff. pt awake, a/ox4; ambulatory. v/s taken and recorded. placed pt on tele sr. oriented to room and surroundings. instructed to call for assistance. will endorsed to next shift to admit pt.
[2019-10-10 18:40] VITALS: BP 117/66
--- NOTE | 2019-10-10 19:15 | NUR ---
tele detail sergeant: notes report given to sujit mack) for continuity of care.
--- NOTE | 2019-10-10 19:24 | NUR ---
RESIDENCE DIRECTOR OPENING NOTES: RECEIVED PT AND IS SITTING UP IN BED EATING DINNER AT THIS TIME. PT ON ROOM AIR AND IS TOLERATING WELL. NO SOB NOTED. NO S/S OF DISTRESS. PT NOTED WITH NITRO PATCH ON CHEST. PT ON TELE BOX AND READING SHOWS SR 95 AT THIS TIME. PT NOTED WITH R FOREARM #18G AND IS PATENT AND INTACT. CURRENTLY H/L. BED KEPT IN LOW, LOCKED POSITION, AND SIDE RAILS X 2 UP. AWAITING FOR ADMITTING ORDERS. DR. SHETH NOTIFIED. WILL CONTINUE TO MONITOR PT.
[2019-10-10 20:00] VITALS: BP 142/62
[2019-10-10] MEDS ORDERED: ONDANSETRON HCL/PF 4 MG/2 ML VIAL IVP PRN (20:30)
[2019-10-10] MEDS ORDERED: ACETAMINOPHEN 325 MG TABLET PO PRN (20:30)
[2019-10-10] MEDS ORDERED: ENOXAPARIN SODIUM 40 MG/0.4 ML DISP.SYRIN SQ SCH (20:30)
[2019-10-10] MEDS ORDERED: MAG HYDROX/AL HYDROX/SIMETH 30 ML UDC PO PRN (20:30)
[2019-10-10] MEDS ORDERED: HYDROCODONE/APAP 5/325MG 1 EACH TABLET PO PRN (20:30)
[2019-10-10] MEDS ORDERED: MAGNESIUM HYDROXIDE 30 ML UDC PO PRN (20:30)
[2019-10-10] MEDS ORDERED: ZOLPIDEM TARTRATE 5 MG TABLET PO PRN (20:30)
[2019-10-10] MEDS ORDERED: Z GUARD REMEDY 2 OZ OINT TP PRN ×2 (20:30)
--- NOTE | 2019-10-10 20:50 | NUR ---
ELECTRONICS LEAD NOTES: NOTIFIED DR. APARICIO THAT PT TAKES TRAMADOL 50MG PO BID PRN FOR PAIN AND FLEXERIL 10MG TID PRN FOR PAIN. OK TO ORDER
--- NOTE | 2019-10-10 20:56 | NUR ---
ADHESIVE SPRAYER NOTES: OK TO START OMEPRAZOLE 20MG TONIGHT WELL PER DR APARICIO PT TAKES THIS AT HOME.
[2019-10-10] MEDS ORDERED: PANTOPRAZOLE 40 MG TABLET.DR PO SCH (21:00)
[2019-10-10] MEDS ORDERED: TRAMADOL HCL 50 MG TABLET PO PRN (21:00)
[2019-10-10] MEDS: CYCLOBENZAPRINE 10 MG TABLET PO PRN (21:29)
[2019-10-10] MEDS ORDERED: PANTOPRAZOLE 40 MG TABLET.DR PO ONE (21:30)
[2019-10-10] MEDS: TRAMADOL HCL 50 MG TABLET PO PRN (21:30)
--- NOTE | 2019-10-10 21:34 | NUR ---
TAMPING MACHINE OPERATOR NOTES: PT COMPLAINING OF 6/10 R KNEE AND HIP PAIN. PT WAS ADMINISTERED TRAMADOL 50MG PO AND FLEXERIL 10MG PO. WILL CONTINUE TO MONITOR.
[2019-10-11] VITALS: BP 109/58
[2019-10-11 04:00] VITALS: BP 92/66
[2019-10-11 04:11] VITALS: BP 92/66
--- NOTE | 2019-10-11 06:11 | NUR ---
WEB APPLICATIONS PROGRAMMER CLOSING NOTES: ALL NEEDS WERE ATTENDED AND ANTICIPATED FOR. PT KEPT CLEAN, DRY, AND COMFORTABLE. PT REMAINS ON ROOM AIR AND IS TOLERATING WELL. NO SOB NOTED. NO S/S OF DISTRESS. PT ASLEEP AT THIS TIME. NITROBID PATCH REMAINS ON L UPPER CHEST. IV ON RIGHT FOREARM #18G REMAINS INTACT. CURRENTLY H/L. BED KEPT IN LOW, LOCKED POSITION, AND SIDE RAILS X 2 UP. BED ALARM ACTIVATED WELL. PT ON TELE MONITOR AND READING SHOWS SR 70 WITH OCCASIONAL PVCS. WILL ENDORSE TO AM NURSE FOR NURYS.
--- NOTE | 2019-10-11 06:32 | NUR ---
CELLULAR EQUIPMENT REPAIRER NOTES: DR. CARMEN AT BEDSIDE.
[2019-10-11 07:02] LABS: BASOPHILS % (AUTO) 0.6 % (0.0-2.0); EOSINOPHILS % (AUTO) 3.4 % (0.0-6.0); HEMATOCRIT 35 % (33-45); HEMOGLOBIN 11.5 g/dL (11.5-14.8); LYMPHOCYTES # (AUTO) 2.3 /CMM (0.8-4.8); LYMPHOCYTES % (AUTO) 40.2 % (20.0-44.0); MEAN CORPUSCULAR HGB CONC 33 g/dl (31.0-36.0); MEAN CORPUSCULAR VOLUME 94 fL (82-100); MONOCYTES # (AUTO) 0.6 /CMM (0.1-1.30); MONOCYTES % (AUTO) 9.7 % (2.0-12.0); NEUTROPHILS # (AUTO) 2.6 /CMM (1.8-8.9); NEUTROPHILS % (AUTO) 46.1 % (43.0-81.0); PLATELET COUNT (AUTO) 189 /CMM (150-450); RED BLOOD CELL COUNT(AUTO) 3.75 MIL/uL (4.0-5.2); WHITE BLOOD COUNT (AUTO) 5.7 K/uL (4.3-11.0)
--- NOTE | 2019-10-11 07:06 | NUR ---
PRODUCTION PLANNER NOTES: ENDORSED TO AM NURSEGERI.
[2019-10-11] MEDS ORDERED: PANTOPRAZOLE 40 MG TABLET.DR PO SCH (07:30)
--- NOTE | 2019-10-11 07:30 | NUR ---
RN OPENING NOTES Patient in bed, resting and watching TV, A/O x4, Welsh speaking; on room air, tolerating well with saturations of 98%. IV line on Right FA noted, patent and intact, flushing well; Patient is ambulatory, reddens on bilat groin noted. Safety measures implemented, call light within reach, bed in lowest position, will cont to monitor
[2019-10-11 07:34] LABS: THYROID STIMULATING HORMONE 2.106 uIU/mL (0.358-3.74)
[2019-10-11 07:50] LABS: CALCIUM, SERUM 8.2 mg/dL (8.5-10.1); CREATININE 0.9 mg/dL (0.6-1.3); MAGNESIUM 2.1 mg/dL (1.8-2.4); PHOSPHORUS 3.7 mg/dL (2.5-4.9)
[2019-10-11 08:00] VITALS: BP 117/66
[2019-10-11] MEDS ORDERED: ASPIRIN 81 MG TAB.CHEW PO SCH (09:00)
[2019-10-11] MEDS ORDERED: IV NS 0.9% 1,000 ML IV PRN (09:10)
[2019-10-11] MEDS: TRAMADOL HCL 50 MG TABLET PO PRN (09:16)
[2019-10-11] MEDS: CYCLOBENZAPRINE 10 MG TABLET PO PRN (09:16)
[2019-10-11] MEDS ORDERED: ATORVASTATIN 10 MG TABLET PO SCH (09:30)
--- NOTE | 2019-10-11 09:30 | NUR ---
LIPITOR (ATROVASTIN) NOT IN PYXIS, PHARMACY NOTIFIED
--- NOTE | 2019-10-11 10:11 | NUR ---
HOLD FLUIDS DUE FOLLOWING CT ANGIOGRAM
--- NOTE | 2019-10-11 11:00 | NUR ---
patient went to ct angiogram
[2019-10-11] MEDS ORDERED: METOPROLOL TARTRATE INJ 5 MG/5 ML AMPUL ONE (11:47)
[2019-10-11] MEDS ORDERED: IV NS 0.9% 250 ML IV ONE (11:48)
[2019-10-11] MEDS ORDERED: IOHEXOL-350 100 ML VIAL IV ONE (11:48)
[2019-10-11] MEDS: METOPROLOL TARTRATE INJ 5 MG/5 ML AMPUL IVP PRN ×4 (11:49→12:10)
[2019-10-11] MEDS ORDERED: IV NS 0.9% 500 ML IV PRN (12:00)
[2019-10-11] MEDS ORDERED: METOPROLOL TARTRATE 50 MG TABLET PO SCH (12:00)
[2019-10-11] MEDS ORDERED: NITROGLYCERIN 0.4 MG/TAB BOTTLE SL ONE (12:00)
--- NOTE | 2019-10-11 12:04 | NUR ---
HOLDING MEDS, UNTIL PATIENT WILL RETURN FROM CT ANGIOGRAM
--- NOTE | 2019-10-11 12:17 | NUR ---
RN NOTES; Post CTA: Patient able to tolerate procedure, Denies pain or discomfort at this time. Transferred back to her room. Report given to patient RN
[2019-10-11 12:53] VITALS: BP 115/66
--- NOTE | 2019-10-11 12:53 | NUR ---
NITROSTAT SCHEDULED FOR ADMINISTRATION DURING CT SCAN
[2019-10-11] MEDS ORDERED: ATOR10TA PO (13:19)
[2019-10-11] MEDS ORDERED: METO50TA16 PO (13:19)
[2019-10-11] MEDS ORDERED: TRIAMCINOLONE ACETONIDE 0.025% 15 GM TUBE TP PRN (15:00)
--- NOTE | 2019-10-11 16:30 | NUR ---
patient went home, IV line removed, discharge instruction provided
== END 2019-10-11 17:00 | disposition home or self-care (01) | DRG 392 ==
LOC: ER 13:33 → TELE 16:42 → MED 10-11 10:03
PROVIDERS: ADMIT Student in an Organized Health Care Education/Training Program; ATTEND Student in an Organized Health Care Education/Training Program
DX: K21.0 Gastro-esophageal reflux disease with esophagitis (principal); Z68.43 Body mass index [BMI] 50.0-59.9, adult; N17.9 Acute kidney failure, unspecified; I10 Essential (primary) hypertension; F41.9 Anxiety disorder, unspecified; Z79.899 Other long term (current) drug therapy; G89.29 Other chronic pain; G62.9 Polyneuropathy, unspecified; G43.909 Migraine, unspecified, not intractable, without status migrainosus; E66.9 Obesity, unspecified; M19.90 Unspecified osteoarthritis, unspecified site
CPT/HCPCS: 36415; 71045-TC; 75574; 80048-TC; 80061-TC; 83735-TC; 83880; 84100-TC; 84443-TC; 84484-TC; 85025-TC; 85378-TC; 87081-TC; 93307-TC; G0378; J1650; J3490; J7030; J7050; Q9967

== ENCOUNTER 2019-10-17 13:07 | Outpatient (CLI) | payer MEDICARE, OTHER ==
[~2019-10-17 13:07] MED LIST changes: -AMLO5TAB4 PO; +ATOR10TA PO; -LISI-605 PO; +METO50TA16 PO; +OMEP20CA15 MT; -OMEP20TA5 PO; -TOPI25TA PO; +TOPI50TA24 MT
== END 2019-10-17 23:59 | disposition home or self-care (01) ==
LOC: MSC 13:07
PROVIDERS: ATTEND Internal Medicine
DX: R07.9 Chest pain, unspecified (principal); G43.109 Migraine with aura, not intractable, without status migrainosus; I10 Essential (primary) hypertension; E66.01 Morbid (severe) obesity due to excess calories; Z68.41 Body mass index [BMI] 40.0-44.9, adult; G62.9 Polyneuropathy, unspecified; G89.29 Other chronic pain; M54.9 Dorsalgia, unspecified; F41.8 Other specified anxiety disorders; K21.0 Gastro-esophageal reflux disease with esophagitis; M19.90 Unspecified osteoarthritis, unspecified site; Z79.891 Long term (current) use of opiate analgesic; Z79.899 Other long term (current) drug therapy

== ENCOUNTER 2020-03-05 12:55 | Outpatient (CLI) | payer MEDICARE, OTHER | END 2020-03-05 23:59 | disposition home or self-care (01) | LOC: MSC 12:55 | PROVIDERS: ATTEND Internal Medicine | DX: I10 Essential (primary) hypertension (principal); R07.9 Chest pain, unspecified; R10.819 Abdominal tenderness, unspecified site; G43.809 Other migraine, not intractable, without status migrainosus; E66.01 Morbid (severe) obesity due to excess calories; Z68.41 Body mass index [BMI] 40.0-44.9, adult; G62.9 Polyneuropathy, unspecified; G89.29 Other chronic pain; M54.9 Dorsalgia, unspecified; Z86.59 Personal history of other mental and behavioral disorders; Z79.899 Other long term (current) drug therapy ==

== ENCOUNTER 2021-06-10 10:06 | Outpatient (CLI) | payer MEDICARE, OTHER | END 2021-06-10 23:59 | disposition home or self-care (01) | LOC: MSC 10:06 | PROVIDERS: ATTEND Internal Medicine | DX: Z51.89 Encounter for other specified aftercare (principal); R07.9 Chest pain, unspecified; R10.819 Abdominal tenderness, unspecified site; K21.9 Gastro-esophageal reflux disease without esophagitis; G43.809 Other migraine, not intractable, without status migrainosus; I10 Essential (primary) hypertension; E66.01 Morbid (severe) obesity due to excess calories; Z68.41 Body mass index [BMI] 40.0-44.9, adult; G62.9 Polyneuropathy, unspecified; G89.29 Other chronic pain; M54.9 Dorsalgia, unspecified; Z86.59 Personal history of other mental and behavioral disorders; Z87.19 Personal history of other diseases of the digestive system; Z79.899 Other long term (current) drug therapy ==

== ENCOUNTER 2021-10-09 09:52 | Outpatient (CLI) | payer MEDICARE, OTHER | END 2021-10-09 23:59 | disposition home or self-care (01) | LOC: MSC 09:52 | PROVIDERS: ATTEND Internal Medicine | DX: K92.2 Gastrointestinal hemorrhage, unspecified (principal); R53.1 Weakness; R06.02 Shortness of breath; R07.9 Chest pain, unspecified; K21.9 Gastro-esophageal reflux disease without esophagitis; G43.109 Migraine with aura, not intractable, without status migrainosus; I10 Essential (primary) hypertension; E66.01 Morbid (severe) obesity due to excess calories; Z68.41 Body mass index [BMI] 40.0-44.9, adult; G62.9 Polyneuropathy, unspecified; G89.29 Other chronic pain; M54.9 Dorsalgia, unspecified; Z79.1 Long term (current) use of non-steroidal anti-inflammatories (NSAID); F41.8 Other specified anxiety disorders; Z87.19 Personal history of other diseases of the digestive system; Z79.899 Other long term (current) drug therapy ==

== ENCOUNTER 2021-10-09 10:45 | Emergency (ER) | payer MEDICARE, OTHER ==
[~2021-10-09] VITALS: Ht 162.6 cm; Wt 154.7 kg
[2021-10-09] MEDS ORDERED: PANTOPRAZOLE 40 MG VIAL IV ONE (11:00)
[2021-10-09] MEDS ORDERED: ONDANSETRON HCL/PF 4 MG/2 ML VIAL IVP ONE (11:00)
[2021-10-09] MEDS ORDERED: IV NS 0.9% 1,000 ML BAG IV ONE (11:00)
--- NOTE | 2021-10-09 11:00 | NUR ---
Patient came in to the er c/o abd pain worsening. On room air, breathing evenly and unlabored. Kept comfortable, will continue to monitor accordingly.
[2021-10-09] MEDS ORDERED: PANTOPRAZOLE 40 MG VIAL ONE (11:44)
[2021-10-09] MEDS ORDERED: ONDANSETRON HCL/PF 4 MG/2 ML VIAL ONE (11:44)
[2021-10-09 11:51] LABS: BASOPHILS % (AUTO) 0.7 % (0.0-2.0); EOSINOPHILS % (AUTO) 1.8 % (0.0-6.0); HEMATOCRIT 41 % (33-45); HEMOGLOBIN 13.7 g/dL (11.5-14.8); LYMPHOCYTES # (AUTO) 1.4 K/uL (0.8-4.8); LYMPHOCYTES % (AUTO) 19.9 % (20.0-44.0); MEAN CORPUSCULAR HGB CONC 34 g/dl (31.0-36.0); MEAN CORPUSCULAR VOLUME 93 fL (82-100); MONOCYTES # (AUTO) 0.6 K/uL (0.1-1.30); MONOCYTES % (AUTO) 8.3 % (2.0-12.0); NEUTROPHILS # (AUTO) 4.8 K/uL (1.8-8.9); NEUTROPHILS % (AUTO) 69.3 % (43.0-81.0); PLATELET COUNT (AUTO) 209 K/uL (150-450); WHITE BLOOD COUNT (AUTO) 6.9 K/uL (4.3-11.0)
--- NOTE | 2021-10-09 12:29 | NUR ---
called [facility] educational resource coordinator via exchange
[2021-10-09 14:18] VITALS: BP 136/88
--- NOTE | 2021-10-09 14:18 | NUR ---
iPatient discharged to home in stable condition. Written and verbal after care instructions given. Patient verbalizes understanding of instruction.IV removed. Catheter intact and site benign. Pressure and 4x4 applied to site. No bleeding noted.
[2021-10-09 17:50] LABS: ALBUMIN 3.6 g/dL (3.4-5.0); BILIRUBIN,DIRECT 0.1 mg/dL (0.0-0.2); BILIRUBIN,TOTAL 0.2 mg/dL (0.2-1.0); CALCIUM, SERUM 8.9 mg/dL (8.5-10.1); POTASSIUM 3.7 mmol/L (3.5-5.1); TOTAL PROTEIN, SERUM 7.6 g/dL (6.4-8.2)
== END 2021-10-09 14:18 | disposition home or self-care (01) ==
LOC: ER 10:52
DX: K91.872 Postprocedural seroma of a digestive system organ or structure following a digestive system procedure (principal); E66.01 Morbid (severe) obesity due to excess calories; K62.5 Hemorrhage of anus and rectum; R10.13 Epigastric pain; R10.2 Pelvic and perineal pain; I10 Essential (primary) hypertension; K21.9 Gastro-esophageal reflux disease without esophagitis; M19.90 Unspecified osteoarthritis, unspecified site; Z68.43 Body mass index [BMI] 50.0-59.9, adult; Z90.49 Acquired absence of other specified parts of digestive tract; Z79.899 Other long term (current) drug therapy
CPT/HCPCS: 99285; 74176; 96374; 71045; 96361; 96375; 93005; 85025; 80048; 83690; 80076; 36415; 85730; 86850; J2405; J7030; C9113